=== PATIENT | female | born 1995 ===

== ENCOUNTER 2020-10-25 10:30 | Day surgery (SDC) | payer OTHER | END 2020-10-25 16:45 | disposition home or self-care (01) | LOC: AMB-ENDOS 10:30 | PROVIDERS: ATTEND Colon & Rectal Surgery | DX: K62.89 Other specified diseases of anus and rectum (principal); R19.8 Other specified symptoms and signs involving the digestive system and abdomen; Z12.11 Encounter for screening for malignant neoplasm of colon ==